=== PATIENT | female | born 1995 | race Caucasian/White ===

== ENCOUNTER → 2016-11-06 | Outpatient (CLI) | payer BC ==
[2016-11-06 12:27] LABS: BASOPHILS # (AUTO) 0.02 10*3/UL; BASOPHILS % (AUTO) 0.3 % (0-1); EOSINOPHILS % (AUTO) 1.3 % (0-8); HEMATOCRIT 41.1 % (37.0-47.0); HEMOGLOBIN 13.8 g/dL (12.0-16.0); IMM GRAN % (AUTO) 0.2 % (0-5); IMM GRAN# (AUTO) 0.01 10*3/UL; LYMPHOCYTES # (AUTO) 2.06 10*3/uL; LYMPHOCYTES % (AUTO) 34.7 % (10-50); MEAN CORPUSCULAR HEMOGLOBIN 30.5 PG (27-31); MEAN CORPUSCULAR HGB CONC 33.6 g/dL (33-37); MEAN PLATELET VOLUME 10.9 FL (7.4-12.2); MONOCYTES # (AUTO) 0.27 10*3/UL (0.3-0.8); MONOCYTES % (AUTO) 4.6 % (5-15); NEUTROPHILS # (AUTO) 3.49 10*3/UL; NEUTROPHILS % (AUTO) 58.9 % (50-80); RDW COEFFICIENT OF VARIATION 12.8 % (11.5-14.5); RED BLOOD COUNT 4.52 10^6/uL (4.20-5.40); WHITE BLOOD COUNT 5.93 10^3/uL (4.8-10.8)
[2016-11-06 12:28] LABS: PLATELET MORPHOLOGY COMMENT NORMAL MORPHOLOGY (NORM)
[2016-11-06 12:38] LABS: ASPARTATE AMINO TRANSFERASE 39 IU/L (8-39); BILIRUBIN,TOTAL 0.5 mg/dL (0.3-1.2); BLOOD UREA NITROGEN 10 mg/dL (7-22); BUN/CREATININE RATIO 11.11 (6-20); CALCIUM 9.5 mg/dL (8.7-10.7); CHLORIDE 104 meq/L (98-112); CREATININE 0.9 mg/dL (0.50-1.20); EST GLOMERULAR FILTRATION > 60 (>60 ml/min/1.73m(2)); GLUCOSE 94 mg/dL (78-110); POTASSIUM 3.7 meq/L (3.8-5.2); SODIUM 140 meq/L (135-145); TOTAL PROTEIN 6.8 g/dL (6.1-8.0)
[2016-11-06 13:33] LABS: HIV ANTIBODY NEGATIVE (N); HIV-1 P24 ANTIGEN NEGATIVE (N)
[2016-11-07 10:35] LABS: HEP B CORE IGM ANTIBODY Negative (Negative); HEPATITIS B SURFACE AG Negative (Negative)
[2016-11-07 13:28] LABS: HEPATITIS C ANTIBODY SCREEN Negative (Negative)
== END ==
LOC: LAB 11:57
DX: Z01.419 Encounter for gynecological examination (general) (routine) without abnormal findings (principal)
CPT/HCPCS: 36415; 80053; 84443; 85025; 86703; 86705; 86709; 86780; 86803; 87340

== ENCOUNTER → 2016-11-08 | Outpatient (CLI) | payer BC ==
--- NOTE | 2016-11-08 22:42 | DI ---
RIGHT BREAST ULTRASOUND, 11/08/2016 9:02 AM: Clinical History: Mastodynia. The patient indicated she felt a lump at the 9:00-11:00 position of the right breast. Scans are performed by the technologist and myself through all four quadrants of the right breast wit h the high resolution linear array probe. Additional focused attention was directed toward the 9:00-1 1:00 position. Scans reveal no solid or cystic mass. Specifically, no lesion is seen in the quadrant of question. Th e breasts is comprised of extremely dense breast tissue with prominent glandular and ductal tissue in terspersed within the fibrous tissue. This pattern is normal for the patient's age. BIRADS Category: 1. Negative exam. Follow Up: The patient was advised to perform monthly self breast examinations to monitor the lump/br east pain site over the next 2 - 3 months. She was instructed to contact her health care provider pro mptly if the lump/pain becomes larger or worse during that time. Otherwise, if the lump/pain disappea rs or remains stable, she was advised to have a follow-up breast clinical examination with her health care provider in approximately 2 - 3 months to verify those findings of the patient. If at the time of the breast clinical examination there is still clinical concern regarding this lump/breast pain si te, then surgical consultation would be indicated with possible right breast diagnostic mammography. Readin. Negative. 2. See above regarding followup.
== END ==
LOC: US 08:58
PROVIDERS: ATTEND Nurse Practitioner Family
DX: N64.4 Mastodynia (principal)
CPT/HCPCS: 76641

== ENCOUNTER 2017-09-23 19:09 | Inpatient (IN) ==
--- NOTE | 2017-09-23 19:14 | PDOC ---
Female Problem HPI - General Chief Complaint: Genitourinary Complaint Stated Complaint: right flank pain Date Seen by Provider: 09/23/17 Time Seen by Provider: 19:14 Source: POSITIVE: Patient Nurse's Notes Reviewed & Considered: Yes - History of Present Illness Initial Comments: Belkis is a 22-year-old female who presents to the emergency department with right flank and abdominal pain. Patient reports symptoms started earlier today. A few days prior she felt like she was developing a urinary tract infection with some dysuria and abnormal smell to the urine. She has progressively had worsening right back pain. No specific exacerbating or relieving factors. There is no radiation and is moderate and overall severity. It radiates into the right side of the abdomen. Patient does have history of prior urinary tract infections. She is currently on her menstrual cycle. - Patient Home Medications Home Medications: Home Medications Dextroamphetamine/Amphetamine [Adderall 20 Mg Tablet] 40 mg PO DAILY tab Levonorgestrel-Ethin Estradiol [Aviane-28 Tablet] 1 tab PO DAILY tab 05/21/17 - Patient Allergies Allergies/Adverse Reactions: Allergies 3 Allergy/AdvReac Type Severity Reaction Status Date / Time No Known Allergies Allergy Verified 09/23/17 19:10 Past Medical History - heen HEENT History: Denies History Cardiovascular History: Denies History Respiratory History: Denies History Gastrointestinal History: Denies History Genitourinary History: Recurrent UTI Endocrine History: Denies History Musculoskeletal History: Denies History Neurological History: Denies History Blood Disorders: Denies History Psychiatric History: Denies History Tobacco Use: Never Smoker Alcohol Use: None Significant Family History: No pertinent family hx Past Medical History Reviewed: New Intake History ROS - Limitations ROS Limitations: No Limitations Constitution: REPORTS: Fever Cardiovascular: REPORTS: Denies Cardiac Symptoms Respiratory: REPORTS: Denies Resp Symptoms Neurological: REPORTS: Denies Neuro Symptoms Gastrointestinal: REPORTS: Abdominal Pain, Nausea Musculoskeletal: REPORTS: Other (Right flank pain) Genitourinary: REPORTS: Dysuria, Flank Pain Eyes: REPORTS: Denies Symptoms ENT: REPORTS: Denies Symptoms Skin: REPORTS: Denies Skin Symptoms Immunologic: POSITIVE: Denies Symptoms Psychiatric: POSITIVE: Denies Psych Symptoms Female Genitourinary Exam - General Appearance General Appearance: POSITIVE: Alert, Cooperative, No Acute Distress - HEENT HEENT: POSITIVE: Head Inspection Nml - Neck Neck: POSITIVE: Normal Inspection - Respiratory Respiratory: POSITIVE: No Respiratory Distress, Breath Sounds Normal - Cardiovascular Cardiovascular: POSITIVE: Regular Rate and Rhythm, Heart Sounds Normal - Abdomen Abdomen: POSITIVE: Soft, Other (Mild tenderness to palpation of the right side of the abdomen without rebound or guarding) - Back Back: POSITIVE: CVA Tenderness (R) - Skin Skin: POSITIVE: Intact, Normal For Race, Warm - Extremities Additional Extremites Details: No edema in the lower extremities. Female Genitourinary Progress - Results Reviewed by me Xrays/CTs/US Reviewed by me: Yes Lab Results Reviewed by Me: Yes CBC and BMP: 09/23/17 19:30 09/23/17 19:30 - Patient's Progress Status: POSITIVE: Unchanged MDM / ED Course: Belkis is a 22-year-old female who presents to the emergency department with right-sided flank and abdominal pain. Her vital signs are notable for slight tachycardia and examination demonstrates right-sided pain and right flank pain. Signs and symptoms are consistent most likely with an ascending infection developing into pyelonephritis. Her white blood cell count is slightly elevated. Urinalysis does demonstrate findings to suggest infection as well. Patient was treated with ketorolac, morphine, Dilaudid and having continued pain subsequent a CT scan was obtained to ensure there was no ureteral stone complicating her course. Per night radiology this does demonstrate some slight hydronephrosis on the right side but there is no evidence of a stone at this time. Findings are consistent with likely pyelonephritis. Patient was given a bolus of normal saline and also treated with ceftriaxone. I spoke with Dr. Llamas the hospitalist admit patient for further treatment given her continued pain. Patient Care Time - Estimated PCT Patient Care Time (In Minutes): 45 Vital Signs - Recent Vital Signs Vital Signs: Vital Signs (Last 8 hours) Temp Pulse Resp BP Pulse Ox 09/23/17 22:58 99.7 F H 09/23/17 22:33 102.6 F H 129 H 18 106/56 93 09/23/17 22:28 102.6 F H 09/23/17 22:20 98.8 F 119 H 18 124/77 98 09/23/17 22:00 102.3 F H - VS Reviewed Vital Signs Reviewed: Yes Discharge Clinical Impression: Pyelonephritis Discharge Disposition: Admit to Observation Condition: Stable
[2017-09-23] MEDS ORDERED: KETOROLAC 15 MG/1 ML VIAL IVP ONE (19:15)
[2017-09-23] MEDS ORDERED: NORMAL SALINE 10 ML SYRINGE FLUSH IVP PRN ×2 (19:15→21:59)
[2017-09-23] MEDS ORDERED: Sodium Chloride 0.9% 1,000 ML PRIMARY IV ONE ×2 (19:15→20:44)
[2017-09-23 19:20] LABS: BILIRUBIN,URINE NEGATIVE (NEG); CLARITY,URINE CLOUDY (CLEAR); COLOR,URINE YELLOW; GLUCOSE, URINE (UA) NEGATIVE (NEG); NITRATE,URINE NEGATIVE (NEG); OCCULT BLOOD,URINE MODERATE (NEG); PROTEIN,URINE 100 mg/dl (NEG); URINE SAMPLE TYPE CLEAN CATCH URINE; UROBILINOGEN,URINE 0.2 mg/dL (0.2)
[2017-09-23 19:23] LABS: URINE SPECIFIC GRAVITY - MAN 1.015
[2017-09-23 19:24] LABS: BACTERIA,URINE MANY; SQUAMOUS EPITHELIAL CELL,UR RARE; WBC,URINE 30-35
[2017-09-23 19:43] LABS: BLOOD UREA NITROGEN 11 mg/dL (7-22); BUN/CREATININE RATIO 13.75 (6-20)
[2017-09-23 19:45] LABS: Hemoglobin [HGB] 14.5 g/dL (12.0-16.0); MEAN CORPUSCULAR HEMOGLOBIN 32.3 PG (27-31); MEAN CORPUSCULAR HGB CONC 34.4 g/dL (33-37); MEAN CORPUSCULAR VOLUME 94 FL (81-99); MEAN PLATELET VOLUME 8.4 FL (7.4-12.2); MONOCYTES % (AUTO) 3.6 % (5-15); NEUTROPHILS % (AUTO) 80.6 % (50-80); RED BLOOD COUNT 4.48 10^6/uL (4.20-5.40)
[2017-09-23 19:46] LABS: BASOPHILS # (AUTO) 0.06 10*3/UL; BASOPHILS % (AUTO) 0.5 % (0-1); EOSINOPHILS # (AUTO) 0.21 10*3/UL; EOSINOPHILS % (AUTO) 1.8 % (0-8); LYMPHOCYTES # (AUTO) 1.58 10*3/uL; MONOCYTES # (AUTO) 0.42 10*3/UL (0.3-0.8); NEUTROPHILS # (AUTO) 9.45 10*3/UL; PLATELET MORPHOLOGY COMMENT NORMAL MORPHOLOGY (NORM); RBC MORPHOLOGY COMMENT NORMAL MORPHOLOGY (NORM); WBC MORPHOLOGY COMMENT NORMAL MORPHOLOGY (NORM)
[2017-09-23] MEDS ORDERED: cefTRIAXone Inj 1 GM in Sodium Chloride 0.9% 100 ML IV ONE (19:51)
[2017-09-23] MEDS ORDERED: MORPHINE SULFATE 4 MG/1 ML IVP ONE (20:12)
[2017-09-23] MEDS ORDERED: HYDROmorphone 2 MG/1 ML IVP ONE ×3 (20:29→21:34)
--- NOTE | 2017-09-23 21:51 | PDOC ---
HPI - History of Present Illness History of Present Illness: This is a verty nice pt with no significant PMHX .Presents to ER with R flank pain ,dysuria which started 2 days ago.pain is now signicantly worse pt is very uncorfatable with minimal movement ,not relieved by toradol,morphine . positive u/a pt will be admitted for further evel and treatment Past Medical History Medical History: no sig PMHX Tobacco Use: Never Smoker In the Past 12 Months, Have Used or Abuse Any of the Following Substance: None Alcohol Use: None Medication / Allergies Home Medications: Home Medications Medication Instructions Recorded Confirmed Type Dextroamphetamine/Amphetamine 40 mg PO DAILY tab 05/21/17 History [Adderall 20 Mg Tablet] Levonorgestrel-Ethin Estradiol 1 tab PO DAILY tab 05/21/17 09/23/17 History [Aviane-28 Tablet] Allergies/Adverse Reactions: Allergies 3 Allergy/AdvReac Type Severity Reaction Status Date / Time No Known Allergies Allergy Verified 09/23/17 19:10 Review of Systems - Review of Systems All Systems: Reviewed & No Additional Complaints Except as Stated - Constitutional Constitutional: REPORTS: General Health Good - Respiratory Respiratory: DENIES: Negative System Review, Cough, Sputum, Dyspnea At Rest, Dyspnea with Exertion, Pleuritic Pain, Hemoptysis, Wheezing, Other, See HPI - Cardiovascular Cardiovascular: DENIES: Negative System Review, Chest Pain, Edema, Syncope, Palpitations, Orthopnea, Paroxysmal Nocturnal Dyspnea, Other, See HPI - Gastrointestinal Gastrointestinal / Abdominal: REPORTS: Abdominal Pain (r side) - Genitourinary Genitourinary: REPORTS: Burning - Neurological Neurologic: DENIES: Negative System Review, Headache, Numbness/Paresthesia, Tremors, Weakness, Seizures, Head Trauma, LOC, Dizziness, Confusion, Memory Loss , Difficulty Walking, Incoordination, Other, See HPI Exam - Vitals Vital Signs: Vital Signs Height 5 ft 2 in Weight 120 lb - General General Appearance: Mild Distress - Head Head Exam: Normal Inspection, Normocephalic, Atraumatic - Eye Eye Exam: POSITIVE: Normal Appearance, PERRL, EOMI, No Scleral Icterus - Neck Neck Exam: Normal Inspection, Full ROM, No Tenderness, No Lymphadenopathy, No Thyromegaly, JVP is not Raised - Respiratory Respiratory Exam: POSITIVE: Clear to Auscultation - Bilaterally, Breathing Non Labored, Normal To Percussion, Normal to Percussion and Palpation - Cardiovascular Cardiovascular Exam: POSITIVE: RRR, No Murmur, No Clicks, No Gallops, No Rubs, PMI Non-Displaced - GI/Abdominal GI/Abdominal Exam: NEGATIVE: Guarding, No Masses, Rebound, Rigid Additional GI/Abdominal Exam Details: R flank pain more on right - External Exam: POSITIVE: Deferred Exam: POSITIVE: Deferred - Extremities Extremities Exam: POSITIVE: Normal Inspection, Full ROM, Normal Capillary Refill , No Clubbing Present, No Edema Present, No Cyanosis Present, Negative Gadiel's sign, Dosalis Pedis Pulses - Stong & Regular Results - Labs CBC and BMP: 09/23/17 19:30 09/23/17 19:30 Assessment and Plan - Patient Problems (1) Pyelonephritis Current Visit: Yes Status: Acute Comment: ceftriaxone 2 gr iv Code(s): N12 - Tubulo-interstitial nephritis, not specified as acute or chronic (2) Pain Current Visit: Yes Status: Acute Comment: dilaudid 2 mg q 4 hours prn pain Code(s): R52 - Pain, unspecified (3) Dehydration Current Visit: Yes Status: Acute Comment: nss 125 cc hour with 20 k Code(s): E86.0 - Dehydration (4) Hypokalemia Current Visit: Yes Status: Acute Comment: replace Code(s): E87.6 - Hypokalemia
[2017-09-23] MEDS ORDERED: CALCIUM CARBONATE 500 MG (TUMS) CHEWABLE TABLET PO PRN (21:59)
[2017-09-23] MEDS ORDERED: LIDOCAINE W/ SODIUM BICARB 0.5 ML SYR SUBD PRN (21:59)
[2017-09-23] MEDS ORDERED: DOCUSATE 100 MG CAPSULE PO PRN (21:59)
[2017-09-23] MEDS: ACETAMINOPHEN 325 MG TABLET PO PRN (22:28)
[2017-09-23] MEDS: ONDANSETRON 4 MG/2 ML VIAL IVP PRN (22:30)
[2017-09-23] MEDS: cefTRIAXone Inj 2 GM in Sodium Chloride 0.9% 100 ML IV SCH (22:46)
[2017-09-23] MEDS ORDERED: Sodium Chloride 0.9% 1,000 ML PRIMARY IV SCH (22:50)
--- NOTE | 2017-09-23 22:51 | DI ---
PROCEDURE: CT ABDOMEN + PELVIS Without Contrast HISTORY: 22-year-old female with right flank pain. COMPARISON: None TECHNIQUE: CT imaging was obtained through the abdomen and pelvis. Coronal and sagittal reformations were performed. FINDINGS: Evaluation is limited by motion degradation, lack of intra-abdominal fat, and lack of contrast. Lower thorax: Bilateral atelectasis. Abdomen: Cholecystectomy clips are identified at the gallbladder fossa. The liver is moderately enlarged with the right lobe measuring approximately 19 centimeters in craniocaudal dimension. The spleen, pancreas, and bilateral adrenal glands are unremarkable. The left kidney is within normal limits. There is mild right hydronephrosis and hydroureter, without evidence of radiopaque obstructing ureteral calculus. There is mild right perinephric and periureteral stranding. Findings may be due to recently passed stone or infection, including pyelonephritis. There are multiple punctate nonobstructive right renal calculi. Evaluation of the GI tract is limited by lack of distention and retained stool. No bowel obstruction. Unremarkable appendix. No free fluid, free air or significant abdominal adenopathy. The abdominal vasculature is unremarkable. Pelvis: The urinary bladder is unremarkable for degree of distension. The uterus and bilateral nonenlarged ovaries are identified. Vaginal tampon. No free fluid, free air or significant pelvic adenopathy. The pelvic vasculature is unremarkable. Bones: Unremarkable for age. IMPRESSION: 1. Mild right hydronephrosis and hydroureter, without evidence of radiopaque obstructing ureteral calculus. There is mild right perinephric and periureteral stranding. Findings may be due to recently passed stone or infection, including pyelonephritis. Correlate with urinalysis. 2. Nonobstructive right nephrolithiasis. 3. Moderate hepatomegaly. 4. Cholecystectomy. 5. Other findings as detailed above.
[2017-09-23] MEDS: HYDROmorphone 2 MG/1 ML IVP PRN (22:59)
[2017-09-24] MEDS: ONDANSETRON 4 MG/2 ML VIAL IVP PRN ×2 (04:17→22:50)
[2017-09-24] MEDS: HYDROmorphone 2 MG/1 ML IVP PRN ×5 (04:17→22:50)
[2017-09-24 06:36] LABS: BLOOD UREA NITROGEN 8 mg/dL (7-22); BUN/CREATININE RATIO 11.42 (6-20)
[2017-09-24 06:50] LABS: Hemoglobin [HGB] 11.2 g/dL (12.0-16.0); MEAN CORPUSCULAR HEMOGLOBIN 31.9 PG (27-31); MEAN CORPUSCULAR VOLUME 94 FL (81-99); MEAN PLATELET VOLUME 8.7 FL (7.4-12.2); RED BLOOD COUNT 3.52 10^6/uL (4.20-5.40)
[2017-09-24 06:51] LABS: BASOPHILS # (AUTO) 0.05 10*3/UL; BASOPHILS % (AUTO) 0.4 % (0-1); EOSINOPHILS % (AUTO) 0.8 % (0-8); LYMPHOCYTES # (AUTO) 1.06 10*3/uL; MONOCYTES # (AUTO) 0.65 10*3/UL (0.3-0.8); MONOCYTES % (AUTO) 5.1 % (5-15); NEUTROPHILS # (AUTO) 10.81 10*3/UL; NEUTROPHILS % (AUTO) 85.3 % (50-80); PLATELET MORPHOLOGY COMMENT NORMAL MORPHOLOGY (NORM); RBC MORPHOLOGY COMMENT NORMAL MORPHOLOGY (NORM); WBC MORPHOLOGY COMMENT NORMAL MORPHOLOGY (NORM)
[2017-09-24] MEDS ORDERED: PROMETHAZINE 25 MG/1 ML VIAL IM ONE (07:07)
[2017-09-24] MEDS ORDERED: LIDOCAINE HCL 2 % 10 ML JELLY URO-JECT TOPICAL PRN (07:13)
[2017-09-24] MEDS ORDERED: HYDROmorphone 2 MG/1 ML IVP PRN (07:13)
[2017-09-24] MEDS ORDERED: fentaNYL Inj 100 MCG/2 ML VIAL IVP PRN (07:29)
--- NOTE | 2017-09-24 11:12 | PDOC(PROG) ---
Interval History: Patient is resting we had to increase the dialogue it to 3 mg but still very tender right flank Objective : Data - Labs CBC and BMP: 09/24/17 06:05 09/24/17 06:05 Objective : Exam - General General Appearance: Cooperative - Neck Neck Exam: Normal Inspection, Full ROM, No Tenderness - Respiratory Respiratory Exam: Clear to Auscultation - Bilaterally, Breathing Non Labored, Normal To Percussion, Normal to Percussion and Palpation - Cardiovascular Cardiovascular Exam: RRR, No Murmur, No Clicks, No Gallops, No Rubs, PMI Non- Displaced - GI/Abdominal Additional GI/Abdominal Exam Details: Right flank tenderness very sensitive to the - External Exam: Deferred Exam: Deferred Assessment and Plan - Patient Problems (1) Pyelonephritis Current Visit: Yes Status: Acute Comment: Continue IV ceftriaxone and pain control IV hydration patient has refused [facility] CT scan reveals no obstruction she is making urine Code(s): N12 - Tubulo-interstitial nephritis, not specified as acute or chronic (2) Pain Current Visit: Yes Status: Acute Comment: We will try IV fentanyl and morphine dye lauded and prolonged has not worked great Code(s): R52 - Pain, unspecified (3) Dehydration Current Visit: Yes Status: Acute Code(s): E86.0 - Dehydration (4) Hypokalemia Current Visit: Yes Status: Acute Code(s): E87.6 - Hypokalemia
[2017-09-24] MEDS: LEVONORGESTREL ETHIN ESTRADIOL PO SCH (11:32)
[2017-09-24] MEDS: ACETAMINOPHEN 325 MG TABLET PO PRN ×2 (14:26→19:59)
[2017-09-24 15:06] LABS: AMPHETAMINE SCREEN NEGATIVE (NEG); METHAMPHETAMINES SCREEN,URINE NEGATIVE (NEG); OPIATE SCREEN,URINE POSITIVE (NEG); URINE SAMPLE TYPE CLEAN CATCH URINE; URINE SPECIFIC GRAVITY - MAN 1.021
[2017-09-24 15:07] LABS: CANNABINOID SCREEN,URINE NEGATIVE (NEG); COCAINE SCREEN NEGATIVE (NEG); METHADONE URINE SCREEN NEGATIVE (NEG)
[2017-09-24] MEDS: cefTRIAXone Inj 2 GM in Sodium Chloride 0.9% 100 ML IV SCH (22:51)
[2017-09-25] MEDS: HYDROmorphone 2 MG/1 ML IVP PRN ×2 (05:19→11:21)
[2017-09-25] MEDS: ONDANSETRON 4 MG/2 ML VIAL IVP PRN ×2 (05:20→11:26)
[2017-09-25] MEDS: ACETAMINOPHEN 325 MG TABLET PO PRN (05:20)
[2017-09-25 06:32] LABS: Hematocrit [HCT] 32.7 % (37.0-47.0); RED BLOOD COUNT 3.51 10^6/uL (4.20-5.40)
[2017-09-25 06:33] LABS: BASOPHILS # (AUTO) 0.03 10*3/UL; BASOPHILS % (AUTO) 0.4 % (0-1); EOSINOPHILS # (AUTO) 0.23 10*3/UL; EOSINOPHILS % (AUTO) 3.4 % (0-8); LYMPHOCYTES # (AUTO) 1.66 10*3/uL; MEAN CORPUSCULAR HEMOGLOBIN 31.3 PG (27-31); MEAN CORPUSCULAR HGB CONC 33.6 g/dL (33-37); MEAN CORPUSCULAR VOLUME 93 FL (81-99); MEAN PLATELET VOLUME 8.7 FL (7.4-12.2); MONOCYTES # (AUTO) 0.62 10*3/UL (0.3-0.8); NEUTROPHILS # (AUTO) 4.33 10*3/UL; NEUTROPHILS % (AUTO) 63.1 % (50-80); PLATELET MORPHOLOGY COMMENT NORMAL MORPHOLOGY (NORM); RBC MORPHOLOGY COMMENT NORMAL MORPHOLOGY (NORM); WBC MORPHOLOGY COMMENT NORMAL MORPHOLOGY (NORM)
[2017-09-25 06:35] LABS: BLOOD UREA NITROGEN 4 mg/dL (7-22); BUN/CREATININE RATIO 5.71 (6-20); SERUM ALBUMIN 2.7 g/dL (3.5-4.8)
[2017-09-25] MEDS ORDERED: HYDROmorphone 2 MG/1 ML IVP STA (07:09)
[2017-09-25 07:11] VITALS: BP 104/53; RESP 17; TEMP 99.2; O2SAT 96
--- NOTE | 2017-09-25 09:21 | DI ---
US Retroperitoneal Limited,09/25/2017 7:08 AM: Clinical History: Flank pain Previous Exam: None at this facility. Findings: Multiple grayscale and color Doppler sonographic images are obtained through the retroperitoneum. The right kidney measures 10.8 cm in length without hydronephrosis. There is a small punctate hyperec hogenicity noted without posterior shadowing. The left kidney is also normal measuring 9.1 cm in length. Urinary bladder demonstrates a normal prevoid volume of 199 cc. Both ureteral jets were identified. Patient was unable to urinate, and the post void volume was 260 cc. Impression: No evidence of hydronephrosis.
[2017-09-25] MEDS: LEVONORGESTREL ETHIN ESTRADIOL PO SCH (10:52)
--- NOTE | 2017-09-25 11:02 | DCSUMMARY ---
Hospitalization Summary Hospital Course: Final Discharge Diagnosis: Current Visit Problems Problem Status Onset Code Pyelonephritis Acute N12 Pain Acute R52 Dehydration Acute E86.0 Hypokalemia Acute E87.6 Diagnostic Data, Laboratory Data, and Procedures of Signifigance: Laboratory Results 09/24/17 09/25/17 09/25/17 Range/Units 14:45 06:00 06:00 WBC 6.9 (4.8-10.8) 10^3/uL RBC 3.51 L (4.20-5.40) 10^6/uL Hgb 11.0 L (12.0-16.0) g/dL Hct 32.7 L (37.0-47.0) % MCV 93 (81-99) FL MCH 31.3 H (27-31) PG MCHC 33.6 (33-37) g/dL RDW Coeff of Susan 11.7 (11.5-14.5) % Plt Count 166 (140-350) 10*3/uL MPV 8.7 (7.4-12.2) FL Neut % (Auto) 63.1 (50-80) % Lymph % (Auto) 24.1 (10-50) % [place] % (Auto) 9.0 (5-15) % Eos % (Auto) 3.4 (0-8) % Baso % (Auto) 0.4 (0-1) % Neut # (Auto) 4.33 10*3/UL Lymph # (Auto) 1.66 10*3/uL [place] # (Auto) 0.62 (0.3-0.8) 10*3/UL Eos # (Auto) 0.23 10*3/UL Baso # (Auto) 0.03 10*3/UL WBC Morphology Comment Normal morphology (NORM) Plt Morphology Comment Normal morphology (NORM) RBC Morph Comment Normal morphology (NORM) Sodium 139 (135-145) meq/L Potassium 4.1 (3.8-5.2) meq/L Chloride 111 (98-112) meq/L Carbon Dioxide 23 (23-33) meq/L Anion Gap 5 (5-20) BUN 4 L (7-22) mg/dL Creatinine 0.7 (0.50-1.20) mg/dL Estimated GFR > 60 (>60 ml/min/1.73m(2)) BUN/Creatinine Ratio 5.71 L (6-20) Glucose 91 (78-110) mg/dL Calculated Osmolality 284.0 (267-292) mOsm/kg Calcium 8.2 L (8.7-10.7) mg/dL Magnesium (1.6-2.4) mg/dL Total Bilirubin 0.1 L (0.3-1.2) mg/dL AST 22 (8-39) IU/L ALT 40 (9-52) IU/L Alkaline Phosphatase 61 (38-126) IU/L Total Protein 5.0 L (6.1-8.0) g/dL Albumin 2.7 L (3.5-4.8) g/dL Globulin 2.3 L (2.50-4.10) g/dL Albumin/Globulin Ratio 1.10 L (1.3-2.0) mg/g Ur Collection Type Clean catch urine U Specif Grav (Refrac) 1.021 Urine Opiates Screen Positive H (NEG) Ur Buprenorphine Negative (NEG) Ur Oxycodone Screen Positive H (NEG) Urine Methadone Screen Negative (NEG) Ur Propoxyphene Screen Negative (NEG) Barbiturate Screen Negative (NEG) U Tricyclic Antidepress Negative (NEG) Phencyclidine Screen Negative (NEG) Amphetamines Screen Negative (NEG) U Methamphetamines Scrn Negative (NEG) Benzodiazepines Screen Negative (NEG) Cocaine Screen Negative (NEG) U Marijuana (THC) Screen Negative (NEG) 09/25/17 Range/Units 06:00 WBC (4.8-10.8) 10^3/uL RBC (4.20-5.40) 10^6/uL Hgb (12.0-16.0) g/dL Hct (37.0-47.0) % MCV (81-99) FL MCH (27-31) PG MCHC (33-37) g/dL RDW Coeff of Susan (11.5-14.5) % Plt Count (140-350) 10*3/uL MPV (7.4-12.2) FL Neut % (Auto) (50-80) % Lymph % (Auto) (10-50) % [place] % (Auto) (5-15) % Eos % (Auto) (0-8) % Baso % (Auto) (0-1) % Neut # (Auto) 10*3/UL Lymph # (Auto) 10*3/uL [place] # (Auto) (0.3-0.8) 10*3/UL Eos # (Auto) 10*3/UL Baso # (Auto) 10*3/UL WBC Morphology Comment (NORM) Plt Morphology Comment (NORM) RBC Morph Comment (NORM) Sodium (135-145) meq/L Potassium (3.8-5.2) meq/L Chloride (98-112) meq/L Carbon Dioxide (23-33) meq/L Anion Gap (5-20) BUN (7-22) mg/dL Creatinine (0.50-1.20) mg/dL Estimated GFR (>60 ml/min/1.73m(2)) BUN/Creatinine Ratio (6-20) Glucose (78-110) mg/dL Calculated Osmolality (267-292) mOsm/kg Calcium (8.7-10.7) mg/dL Magnesium 1.7 (1.6-2.4) mg/dL Total Bilirubin (0.3-1.2) mg/dL AST (8-39) IU/L ALT (9-52) IU/L Alkaline Phosphatase (38-126) IU/L Total Protein (6.1-8.0) g/dL Albumin (3.5-4.8) g/dL Globulin (2.50-4.10) g/dL Albumin/Globulin Ratio (1.3-2.0) mg/g Ur Collection Type U Specif Grav (Refrac) Urine Opiates Screen (NEG) Ur Buprenorphine (NEG) Ur Oxycodone Screen (NEG) Urine Methadone Screen (NEG) Ur Propoxyphene Screen (NEG) Barbiturate Screen (NEG) U Tricyclic Antidepress (NEG) Phencyclidine Screen (NEG) Amphetamines Screen (NEG) U Methamphetamines Scrn (NEG) Benzodiazepines Screen (NEG) Cocaine Screen (NEG) U Marijuana (THC) Screen (NEG) Microbiology 09/23/17 23:00 Blood Blood Culture - Preliminary NO GROWTH AFTER 24 HOURS 09/23/17 22:35 Blood Blood Culture - Preliminary NO GROWTH AFTER 24 HOURS 09/23/17 19:18 Urine,Clean Catch Urine Culture - Preliminary History and Physical pertinent to Admission: Course of Hospitalization: This very nice 22-year-old female who comes to the emergency room complaining of right flank pain. UA was done which was positive for bacteria also CT scan of the abdomen and pelvis revealed the some mild hydronephrosis on the right but with no obstructing kidney stone diagnosed with pyelonephritis started on IV fluids, ceftriaxone 2 g, potassium replacement initially Toradol did not work for pain relief nor did morphine but high dye lauded that seem to give her some rest and she was able to fall sleep. Initial white count was 11,000 and the next day went up to 12,000 at today's labs are normal with no left shift BUN and creatinine stayed normal throughout the hospital stay her potassium is now replaced. I got a call from Dr. Shah nephrology at [facility] because the patient's mother for a year is an ICU nurse there. I've also had permission from the patient is to speak with this the ICU nurse this morning about her case I presented the case to her and gave him the option to her and the patient that I would do whatever they would feel comfortable doing I told her I was very confident in keeping her here if she wanted to stay most likely is the pyelonephritis it still needed some time to improve. Because of logistics and the and the patient and still has the pain and is very sensitive on the right flank she would prefer to be transferred to [facility]. I spoke to Dr. Shah and Dr. Healy who is the hospitalist at [facility] who accepted the patient in transfer. At this time no other test or procedure or medicine was recommended by either Dr. Healy or Dr. Shah but would be happy to accept the because of patient's wishes On the date of discharge, the patient was examined: Gen.: No acute distress, alert, nontoxic Heart: Regular rate and rhythm, no murmurs, clicks, gallops, or rubs Lungs: Clear to auscultation bilaterally, breathing is nonlabored Abdomen/GI: [Normal tones on auscultation, soft, right flank pain Musculoskeletal/extremities: No clubbing, cyanosis, or edema Vitals reviewed and are listed below Assessment and Plan: 1. As per discharge assessments above 2. Disposition: [facility] 3. Condition on discharge, stable and improved. 4. Diet: regular diet 5. Activities: resume normal activities 6. Follow-Up: 1. PCP 2. 7. Medications at the Time of Discharge: Home Medications Medication Instructions Recorded Confirmed Type Dextroamphetamine/Amphetamine 40 mg PO DAILY tab 05/21/17 09/23/17 History [Adderall 20 Mg Tablet] Levonorgestrel-Ethin Estradiol 1 tab PO DAILY tab 05/21/17 09/23/17 History [Aviane-28 Tablet] 3 Generic Name Dose Route Start Last Admin Trade Name Freq PRN Reason Stop Dose Admin Acetaminophen 650 mg 09/23/17 21:59 09/25/17 05:20 Tylenol PO 650 mg Q6H PRN Administration Pain or Fever Calcium Carbonate 1 - 2 tab 09/23/17 21:59 Tums PO Q6H PRN Heartburn Docusate Sodium 100 mg 09/23/17 21:59 Colace PO BID PRN Constipation Hydromorphone HCl 3 mg 09/24/17 14:31 09/25/17 05:19 Dilaudid Inj IVP 3 mg Q4H PRN Administration Pain Ceftriaxone Sodium 2 gm/ 100 mls @ 200 mls/hr 09/23/17 21:59 09/24/17 22:51 Sodium Chloride IV 200 mls/hr Q24H TESS Administration Potassium Chloride/Sodium Chloride 1,000 mls @ 125 mls/hr 09/23/17 22:00 03/07 08:33 Pot Chl 20meq + Ns PRIMARY IV 125 mls/hr .Q8H TESS Administration Lidocaine HCl 0.5 ml 09/23/17 21:59 Lidocaine Buffered Inj SUBD ONCE PRN IV Starts Lidocaine HCl 10 ml 09/24/17 07:13 Xylocaine Uro-Ject 2% TOPICAL ONCE PRN Discomfort catheter insertion Non-Formulary Medication 1 tab 09/24/17 09:00 09/25/17 10:52 Levonorgestrel-Ethin Estradiol [Aviane-28 Tablet] PO Not Given DAILY TESS Ondansetron HCl 4 mg 09/23/17 21:59 09/25/17 05:20 Zofran Inj IVP 4 mg Q4H PRN Administration NAUSEA / VOMITING Sodium Chloride 5 - 20 ml 09/23/17 21:59 Saline Flush IVP BID PRN Flush 8. Time, care, counseling and coordination of care for this discharge is greater than 30 minutes. HISTORY: 22-year-old female with right flank pain. These are the CT scan results and reports which I copied into my discharge summary COMPARISON: None TECHNIQUE: CT imaging was obtained through the abdomen and pelvis. Coronal and sagittal reformations were performed. FINDINGS: Evaluation is limited by motion degradation, lack of intra-abdominal fat, and lack of contrast. Lower thorax: Bilateral atelectasis. Abdomen: Cholecystectomy clips are identified at the gallbladder fossa. The liver is moderately enlarged with the right lobe measuring approximately 19 centimeters in craniocaudal dimension. The spleen, pancreas, and bilateral adrenal glands are unremarkable. The left kidney is within normal limits. There is mild right hydronephrosis and hydroureter, without evidence of radiopaque obstructing ureteral calculus. There is mild right perinephric and periureteral stranding. Findings may be due to recently passed stone or infection, including pyelonephritis. There are multiple punctate nonobstructive right renal calculi. Evaluation of the GI tract is limited by lack of distention and retained stool. No bowel obstruction. Unremarkable appendix. No free fluid, free air or significant abdominal adenopathy. The abdominal vasculature is unremarkable. Pelvis: The urinary bladder is unremarkable for degree of distension. The uterus and bilateral nonenlarged ovaries are identified. Vaginal tampon. No free fluid, free air or significant pelvic adenopathy. The pelvic vasculature is unremarkable. Bones: Unremarkable for age. IMPRESSION: 1. Mild right hydronephrosis and hydroureter, without evidence of radiopaque obstructing ureteral calculus. There is mild right perinephric and periureteral stranding. Findings may be due to recently passed stone or infection, including pyelonephritis. Correlate with urinalysis. 2. Nonobstructive right nephrolithiasis. 3. Moderate hepatomegaly. 4. Cholecystectomy. 5. Other findings as detailed above. Below order ultrasound reports which I copied into my discharge summary Retroperitoneal Limited,09/25/2017 7:08 AM: Clinical History: Flank pain Previous Exam: None at this facility. Findings: Multiple grayscale and color Doppler sonographic images are obtained through the retroperitoneum. The right kidney measures 10.8 cm in length without hydronephrosis. There is a small punctate hyperechogenicity noted without posterior shadowing. The left kidney is also normal measuring 9.1 cm in length. Urinary bladder demonstrates a normal prevoid volume of 199 cc. Both ureteral jets were identified. Patient was unable to urinate, and the post void volume was 260 cc. Impression: No evidence of hydronephrosis. Dictated By: 09/25/17904 JAISON HARDY MD. Signed By: 09/25/17920 JAISON HARDY MD. Exam - Vitals Vital Signs: Vital Signs Temperature 99.2 F Temperature Source Oral Pulse Rate [Pulse Oximeter] 97 Pulse Rate [Pulse Oximeter] 119 Respiratory Rate 17 Blood Pressure [Right Arm] 104/53 Blood Pressure [Left Arm] 98/57 Blood Pressure [Left Arm] 124/77 Pulse Ox 96 Oxygen Flow Rate 2 Oxygen Delivery Method Nasal Cannula Height 5 ft 2 in Weight 125 lb Patient Problems - Patient Problem List (1) Pyelonephritis Current Visit: Yes Status: Acute Code(s): N12 - Tubulo-interstitial nephritis, not specified as acute or chronic Category: Medical (2) Pain Current Visit: Yes Status: Acute Code(s): R52 - Pain, unspecified Category : Medical (3) Dehydration Current Visit: Yes Status: Acute Code(s): E86.0 - Dehydration Category: Medical (4) Hypokalemia Current Visit: Yes Status: Acute Code(s): E87.6 - Hypokalemia Category: Medical
== END 2017-09-25 11:34 | disposition short-term general hospital (02) | DRG 690 ==
LOC: ER 19:09 → MED/SURG 21:43
PROVIDERS: ADMIT Internal Medicine; ATTEND Internal Medicine